=== PATIENT | female | born 1975 | race Caucasian/White ===

== ENCOUNTER 2016-12-18 07:36 | Day surgery (SDC) | payer MEDICAID ==
[2016-12-17 11:35] VITALS: BMI 30.1
[2016-12-18] VITALS (14 sets, daily range): BP systolic 119–142; BP diastolic 69–87; PULSE 71–85; RESP 12–18; Ht 160 cm; Wt 87.3 kg
[~2016-12-18] VITALS: Ht 160 cm; Wt 87.3 kg
[~2016-12-18 07:36] MED LIST: CEFAZOLIN 2 GM/50 ML (PMX) 50 ML IVPB SCH; SOD CHLORIDE 0.9% 1,000 ML IV SCH
[2016-12-18] MEDS ORDERED: HYDROCODONE/APAP (7.5/325) TAB PO PRN (10:00)
[2016-12-18] MEDS ORDERED: MIDAZOLAM 1 MG/ML 2 ML INJ ONE (10:21)
[2016-12-18] MEDS ORDERED: LIDOCAINE 2% (SDV) 5 ML INJ ONE (10:21)
[2016-12-18] MEDS ORDERED: PROPOFOL 20 ML ONE (10:21)
[2016-12-18] MEDS ORDERED: DIPHENHYDRAMINE 50 MG INJ IV PRN (10:30)
[2016-12-18] MEDS ORDERED: PROCHLORPERAZINE 10 MG INJ IV PRN (10:30)
[2016-12-18] MEDS ORDERED: FENTAnyl 50 MCG/ML VIAL IV PRN (10:30)
[2016-12-18] MEDS ORDERED: ONDANSETRON 4 MG INJ IV PRN (10:30)
[2016-12-18] MEDS ORDERED: MEPERIDINE 25 MG INJ IV PRN (10:30)
[2016-12-18] MEDS ORDERED: HYDROmorphONE (0.2 MG/ML) 10ML SYG IV PRN ×3 (10:30)
[2016-12-18] MEDS ORDERED: OXYCODONE/ACETAMINOPHEN (5/325) TAB PO PRN (10:30)
[2016-12-18] MEDS ORDERED: FENTAnyl 50 MCG/ML VIAL ONE (10:33)
[2016-12-18] MEDS ORDERED: METOCLOPRAMIDE 10 MG INJ ONE (10:34)
[2016-12-18] MEDS ORDERED: CEFAZOLIN 1 GM INJ ONE (10:34)
[2016-12-18] MEDS ORDERED: ONDANSETRON 4 MG INJ ONE (10:34)
[2016-12-18] MEDS ORDERED: DEXAMETHASONE 4 MG/ML 1 ML INJ ONE (10:34)
--- NOTE | 2016-12-18 11:41 | OPR ---
DATE OF OPERATION: 12/18/2016 PREOPERATIVE DIAGNOSIS: Left breast mass. POSTOPERATIVE DIAGNOSIS: Left breast mass. OPERATION PERFORMED: Excision of left breast mass. ANESTHESIA: General. ANESTHESIOLOGIST: Dr. Stern. SURGEON: Nils High MD REFUSE COLLECTOR SUPERVISOR: Kenya Angel MD INDICATIONS FOR PROCEDURE: The patient is a 41-year-old female who presented with a palpable mass, which is very symptomatic, in her left breast. 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 The patient requested excision. She consented and was scheduled for surgery. DESCRIPTION OF PROCEDURE: The patient was brought to the operating theater, placed under general an esthesia. The left breast was prepped and draped in usual sterile fashion. A small curvilinear inc ision was made with 15 blade scalpel directly over the palpable mass for a distance of approximately 3 cm. Subcutaneous tissue was dissected with cautery. The skin edges were elevated and using caut tutu the breast parenchyma was dissected until the mass was clearly identified. It appeared consiste nt with probable fibroadenoma. It was meticulously dissected from surrounding tissue using cautery and sent for permanent pathologic analysis. The wound was then irrigated. Minimal bleeding was con trolled with cautery. The skin was then closed with a deep dermal layer of 4-0 Vicryl sutures in in terrupted fashion, followed by final skin approximation with 5-0 PDS in subcuticular fashion. Benzo in and Steri-Strips were then applied. The patient tolerated procedure well. Estimated blood loss was 10 mL. There were no complications and the patient was transported in stable condition to the r ecovery room. Dictated By: NILS HIGH MD TL/SHIV Conf#: [id number] DID#: [id number]
== END 2016-12-18 13:30 | disposition home or self-care (01) ==
LOC: SDS 07:36
PROVIDERS: ATTEND Surgery Surgical Oncology
DX: N63 Unspecified lump in breast (principal); E66.9 Obesity, unspecified; Z68.34 Body mass index [BMI] 34.0-34.9, adult
CPT/HCPCS: 19120; 88307; J0690; J1100; J2250; J2405; J2765; J3010; Z7512; Z7610